=== PATIENT | male | born 1950 | race Caucasian/White ===

== ENCOUNTER 2019-06-18 20:37 | Emergency (ER) | payer MEDICARE, BC ==
--- NOTE | 2019-06-18 20:53 | EDM.PDOC ---
ED HPI GENERAL MEDICAL PROBLEM - General Chief Complaint: Respiratory Problem Stated Complaint: shortness of breath Time Seen by Provider: 06/18/19 20:45 Source of Information: Reports: Patient, EMS, Family (), Old Records ([facility] chart/EMR). Denies: EMS Notes Reviewed (Report not available at time of dictation) History Limitations: Reports: No Limitations - History of Present Illness INITIAL COMMENTS - FREE TEXT/NARRATIVE: Patient was brought to the emergency room via ambulance with route deliverer accompaniment for evaluation of sudden onset moderate dyspnea, diaphoresis, nonspecific generalized weakness, and dizziness with symptoms starting at about 20:15 hours this evening at home while he was taking out the dogs. He was standing in his own garage at that time with no exposure to exhaust, fumes, etc.. Per history from the paramedics his O2 sat was only 84% at that time with O2 at 15 L/m by nonrebreather mask started at that time. EKG was taken and IV started, however no other medications or treatment prior to arrival. Note recent outpatient right rotator cuff repair as below with additional distant history of a superficial thrombosis The patient denies any chest pain/pressure, heart flutter, orthostasis, orthopnea, paresthesias, recent decreased exercise tolerance, or any other anginal-type symptoms. No recent history of abdominal pain, nausea, diarrhea, melena, gross hematochezia, or any food intolerance, including fatty foods, etc., although some nonspecific heartburn type symptoms and burping sensation with the above symptoms with no improvement with Tums- extra strength. He denies any gross hematuria, colic, or other UTI symptoms. The patient also denies any recent fever, cough, wheezing, etc.. No history of recent headaches, visual changes, diplopia, change in mental status, or other change in neurological status. He denies any specific pain or discomfort other than normal postoperative pain in his right shoulder. Onset: Today, Sudden Onset Date: 06/18/19 Onset Time: 20:15 Duration: Improving Location: Reports: Other (No pain other than heartburn discomfort) Quality: Reports: Burning, Same as Previous Episode Severity: Mild Improves with: Reports: None Worsens with: Reports: None Context: Reports: Other (As above). Denies: Sick Contact, Trauma Associated Symptoms: Reports: Diaphoresis, Shortness of Breath, Weakness. Denies: Confusion, Chest Pain, Cough, cough w sputum, Fever/Chills, Headaches, Loss of Appetite, Malaise, Nausea/Vomiting, Rash, Seizure, Syncope Treatments EMS EDUCATOR: Reports: EKG, IV/IO, Oxygen, Other (see below) (As above) - Related Data Allergies Allergy/AdvReac Type Severity Reaction Status Date / Time No Known Allergies Allergy Verified 06/18/19 20:39 Home Meds: Home Meds Ascorbate Calcium [Vitamin C] 1 tab PO DAILY 06/18/19 [History] Aspirin [Aspirin EC] 325 mg PO DAILY 06/18/19 [History] Calcium Carbonate/Vitamin D3 [Calcium 500 mg-Vit D3 600 Unit] 1 tab PO DAILY [History] Celecoxib [CeleBREX] 200 mg PO DAILY 06/18/19 [History] Cyanocobalamin (Vitamin B-12) [B-12] 1,000 mcg PO DAILY 06/18/19 [History] Hydrocodone/Acetaminophen [Hydrocodon-Acetaminophen 5-325] 1 - 2 tab PO Q4HR PRN 06/18/19 [History] Ibuprofen [Motrin] 600 mg PO Q6H PRN 06/18/19 [History] Magnesium 250 mg PO DAILY 06/18/19 [History] Multivitamin [Daily Multiple Vitamin] 1 tab PO DAILY 06/18/19 [History] Red Yeast Rice 1 tab PO DAILY 06/18/19 [History] traMADol [Ultram] 1 tab PO Q6HR PRN 06/18/19 [History] Past Medical History HEENT History: Reports: Hard of Hearing, Impaired Vision, Otitis Media, Other ( See Below). Denies: Allergic Rhinitis, Cataract, Glaucoma, Macular Degeneration , Retinal Detachment Other HEENT History: Bilateral hearing loss secondary to previous recurrent otitis media. Patient wears glasses. Cardiovascular History: Reports: Blood Clots/VTE/DVT, Other (See Below). Denies : Afib, Aneurysm, Arrhythmia, CAD, Cardiomyopathy, Heart Failure, Heart Murmur, High Cholesterol, Hypertension, OH, PVD, Syncope Other Cardiovascular History: History of right leg superficial venous thrombosis on 06/29/06 with additional history of thrombophlebitis. Respiratory History: Reports: Bronchitis, Recurrent, COPD, Intubation, Previous. Denies: Asthma, Intubation, Difficult, PE, Pneumonia, Recurrent, Pneumothorax, Sleep Apnea, TB Gastrointestinal History: Reports: GERD, Jaundice, Other (See Below). Denies: Bowel Obstruction, Celiac Disease, Cholelithiasis, Chronic Constipation, Chronic Diarrhea, Colon Polyp, Fecal Incontinence, Gastritis, GI Bleed, Hepatitis, Hiatal Hernia, Inflammatory Bowel Disease, Irritable Bowel Syndrome, Pancreatitis, PUD Other Gastrointestinal History: jaundice. Genitourinary History: Reports: BPH. Denies: Acute Renal Failure, Chronic Renal Insuffiency, Renal Calculus, STD, Urinary Incontinence, UTI, Recurrent Musculoskeletal History: Reports: Arthritis, Back Pain, Chronic, Fracture, Gout , Neck Pain, Chronic, Osteoarthritis, Other (See Below). Denies: Amputation, RA , SLE Other Musculoskeletal History: Rotator cuff tear secondary to a fall with surgery as below. Previous basilar fracture of the left fifth distal phalanx/ finger on 08/04/05. Right index finger fracture at age 17. Neurological History: Reports: None. Denies: Cerebral Aneurysms, Concussion, CVA, Headaches, Chronic, Head Trauma, Migraines, MS, Neuropathy, Diabetic, Neuropathy, Peripheral, Parkinson's, Seizure, TIA, Vertigo Psychiatric History: Denies: Abuse, Victim of, ADD, ADHD, Addiction, Anxiety, Depression, Psych Hospitalization(s), PTSD, Suicide Attempt, Suicidal Ideation Endocrine/Metabolic History: Reports: Obesity/BMI 30+. Denies: Diabetes, Type I , Diabetes, Type II, Diabetes Mellitus, Type 3c, Hypothyroidism, IDDM Hematologic History: Reports: None. Denies: Anemia, Blood Transfusion(s), Iron Deficiency Oncologic (Cancer) History: Denies: Basal Cell Carcinoma, Colon, Hodgkin's Lymphoma, Leukemia, Lymphoma, Malignant Melanoma, Non-Hodgkin's Lymphoma, Prostate, Squamous Cell Carcinoma Dermatologic History: Reports: None. Denies: Eczema, Psoriasis - Infectious Disease History Infectious Disease History: Reports: Chicken Pox, Measles, Mumps. Denies: C- Difficile, Meningitis, Mononucleosis, MRSA, Pertussis (Whooping Cough), Rheumatic Fever, Rubella, Scarlet Fever, Shingles, TB, VRE - Past Surgical History Head Surgeries/Procedures: Reports: None HEENT Surgical History: Reports: Adenoidectomy, Myringotomy w Tube(s), Oral Surgery, Tonsillectomy, Other (See Below). Denies: Cataract Surgery, Eye Surgery, Laser Surgery, LASIK, Naso-Sinus Surgery Other HEENT Surgeries/Procedures: Multiple teeth extractions. Bilateral PE tubes at about age 6. Tonsillectomy and adenoidectomy at age 35. Cardiovascular Surgical History: Reports: None, Valve Replacement, Varicose Other Cardiovascular Surgeries/Procedures: Right leg varicose vein stripping and ligation on 08/09/06. Respiratory Surgical History: Reports: None. Denies: Thoracentesis GI Surgical History: Reports: Hernia, Abdominal, Other (See Below). Denies: Appendectomy, Cholecystectomy, Colonoscopy, EGD, Hernia, Inguinal, Hernia Repair /Other Other GI Surgeries/Procedures: Ventral hernia repair on 08/19/09. Male Surgical History: Reports: None. Denies: Circumcision, TURP- Transurethral Resection of Prostate, Vasectomy Endocrine Surgical History: Reports: None. Denies: Thyroid Biopsy Neurological Surgical History: Reports: None. Denies: C-Spine, Discectomy, Laminectomy, Lumbar Spine, Spinal Fusion, Thoracic Spine, Vertebroplasty Musculoskeletal Surgical History: Reports: Arthroscopic Knee, Shoulder Surgery, Other (See Below). Denies: Carpal Tunnel, Ganglion Cyst, Joint Replacement, ORIF Other Musculoskeletal Surgeries/Procedures:: Right arthroscopic rotator cuff repair on 06/09/19. Knee arthroscopic surgery in about 2016. Oncologic Surgical History: Reports: None Dermatological Surgical History: Reports: None - Past Imaging History Past Imaging History: Reports: TIFFANIE Screen (Negative on 03/26/18.), MRI (Right shoulder MRI on 05/26/19. MRI of the cervical spine on 03/30/08), PFT (Positive on 08/13/09), Stress Testing (Negative cardiac PET scan on 08/17/09.), Venous Doppler (Venous Doppler studies of the right leg negative on 02/24/09 however positive on 06/29/06 for right superficial femoral vein thrombosis.) Social & Family History - Family History HEENT: Reports: None. Denies: Glaucoma, Macular Degeneration, Retinal Detachment Cardiac: Reports: Bypass, CAD, OH, Other (See Below). Denies: Afib, Aneurysm, Arrhythmia, Blood Clots/VTE/DVT, Heart Failure, Heart Murmur, High Cholesterol, Hypertension, PVD/COD, Syncope Other Cardiac Family History: Mother with fatal OH at age 68. Father with CABG 3 in his 60s. Respiratory: Reports: None. Denies: Asthma, COPD, PE, Pneumothorax, Sleep Apnea GI: Reports: None. Denies: Celiac Disease, Cholelithiasis, Colon Polyps, GI bleed, Inflammatory Bowel Disease, Irritable Bowel Syndrome, PUD : Reports: Renal Calculus, Other (See Below). Denies: Dialysis, Renal Disease /Insufficiency Other Family History: Son with urolithiasis. OBGYN: Reports: Recurrent Spontaneous , Other (See Below). Denies: Endometriosis Other OBGYN Family History: Mother with recurrent SAB of unknown etiology. Musculoskeletal: Reports: Arthritis, Osteoarthritis, Other (See Below). Denies : Gout, RA, SLE Other Musculoskeletal Family History: Mother with osteoarthritis. Neurological: Reports: Migraines, Other (See Below). Denies: Alzheimers Disease , Cerebral Aneurysms, CVA, Dementia, MS, Parkinson's, Seizure, TIA Other Neurological Family History: Mother with migraine headaches. Psychiatric: Reports: None. Denies: Abuse, Victim of, ADD, ADHD, Anxiety, Depression, Psych Hospitalization(s), PTSD, Suicide Attempt Endocrine/Metabolic: Reports: Diabetes, type II, IDDM, Other (See Below). Denies: Diabetes, Type I, Diabetes Mellitus, Type 3c, Hypothyroidism Other Endocrine/Metabolic Family History: Father with IDDM. Paternal grandmother with AODM. Hematologic: Reports: None. Denies: Anemia, SLE Immunologic: Reports: None. Denies: AIDS, HIV, SLE Dermatologic: Reports: None. Denies: Eczema, Psoriasis Oncologic: Reports: Metastatic, Other (See Below). Denies: Colon, Hodgkin's Lymphoma, Leukemia, Lung, Lymphoma, Non-Hodgkin's Lymphoma, Prostate, Skin Other Oncologic Family History: Father with metastatic stomach cancer fatal at age 74. Mother with throat cancer in her 40s. - Tobacco Use Smoking Status *Q: Former Smoker Tobacco Use Within Last Twelve Months: Cigarettes Years of Tobacco use: 44 Packs/Tins Daily: 2 Packs/Tins Daily Comment: Patient smoked between ages 16 and 60 with average use of one to 3 packs per day. Used Tobacco, but Quit: Yes Smoking Cessation Information Provided To Patient: No Second Hand Smoke Exposure: Yes Source of Second Hand Smoke Exposure: smokes Second Hand Smoke Education Provided: Yes - Caffeine Use Caffeine Use: Reports: Coffee (3 cups per day). Denies: Energy Drinks, Soda, Tea - Alcohol Use Alcohol Use History: Yes Days Per Week of Alcohol Use: 1 Number of Drinks Per Day: 5 Number of Drinks Per Day Comment: Usually Mixed drinks every 13 weeks. No previous DWIs, problems with alcohol abuse, etc. Total Drinks Per Week: 5 Alcohol Use in Last Twelve Months: Yes - Recreational Drug Use Recreational Drug Type: Reports: Marijuana/Hashish (Initially in his 20s with monthly use at this time). 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 ED EXAM, GENERAL - Physical Exam Exam: See Below Exam Limited By: No Limitations General Appearance: Alert, WD/WN, No Apparent Distress Eye Exam: Bilateral Eye: EOMI, Normal Inspection (No nystagmus. Patient wearing glasses.), PERRL Ears: Normal External Exam, Normal Canal, Normal TMs, Hearing Loss (Mild bilateralstable by history) Nose: Normal Inspection, Normal Mucosa, No Blood Throat/Mouth: Normal Inspection, Normal Lips, Normal Teeth (Multiple missing teeth), Normal Gums, Normal Oropharynx, Normal Voice, No Airway Compromise. No : Dysphagia, Perioral Cyanosis Head: Atraumatic, Normocephalic. No: Facial Swelling, Facial Tenderness, Sinus Tenderness Neck: Normal Inspection, Supple, Non-Tender, Full Range of Motion. No: Carotid Bruit, Lymphadenopathy (L), Lymphadenopathy (R), Thyromegaly Respiratory/Chest: No Respiratory Distress, No Accessory Muscle Use, Chest Non- Tender, Rales (Mild bilateral basilar rales). No: Pleural Rub, Retractions Cardiovascular: Normal Peripheral Pulses, No Edema, No Gallop, No JVD, No Murmur , No Rub, Tachycardia (Regular rhythm). No: Gallop/S3, Gallop/S4, Friction Rub Peripheral Pulses: 2+: Radial (L), Radial (R), Dorsalis Pedis (L), Dorsalis Pedis (R) GI/Abdominal: Normal Bowel Sounds, Soft, Non-Tender, No Organomegaly, No Distention, No Abnormal Bruit, No Mass, Pelvis Stable, Other (Obese). No: Guarding (Male) Exam: Deferred Rectal (Males) Exam: Deferred Back Exam: Normal Inspection, Full Range of Motion. No: CVA Tenderness (L), CVA Tenderness (R) Extremities: Non-Tender, No Pedal Edema, Normal Capillary Refill, Limited Range of Motion (Right shoulder immobilizer/bradycardia secondary to recent outpatient surgery). No: Chaitanya's Sign Neurological: Alert, Oriented, CN II-XII Intact, Normal Cognition, Normal Gait, Normal Reflexes (Negative Babinski's), No Motor/Sensory Deficits Psychiatric: Normal Affect, Normal Mood Skin Exam: Warm, Dry, Intact, Normal Color, No Rash, Tattoo(s), Wound/Incision ( Surgical site right shoulder region). No: Diaphoretic Lymphatic: No Adenopathy EKG INTERPRETATION EKG Date: 06/18/19 Time: 21:11 Rhythm: Other (Sinus tachycardia) Rate (Beats/Min): 110 [place]: LAD-Left [place] Deviation (Extended left cardiac axis) P-Wave: Enlarged (Mild to moderate diffuse biphasic P waves) QRS: Wide (Oral 0.10 seconds representing repolarization changes versus possible beginning incomplete right bundle branch block.) ST-T: Normal QT: Normal CA/PQ Interval: 0.18 seconds Comparison: NA - No Prior EKG (No recent official EKG for comparison with no significant change from EKG taken by the paramedics prior to patient transfer.) EKG Interpretation Comments: 1. No acute ischemic changes 2. Left atrial enlargement 3. Repolarization changes 4. Sinus tachycardia Course - Vital Signs Last Recorded V/S: Last Vital Signs Temp 36.8 C 06/18/19 23:13 Pulse 111 H 06/18/19 23:13 Resp 20 06/18/19 23:13 BP 158/88 H 06/18/19 23:13 Pulse Ox 98 06/18/19 23:13 Vital Signs - 24 hr 06/18/19 06/18/19 06/18/19 20:40 21:00 21:04 Temperature [ 36.4 C Oral] Pulse, 120 H Peripheral Pulse, 118 H 118 H Peripheral [ Pulse Oximetry] Respiratory 20 22 H Rate Blood Pressure 143/88 H Blood Pressure 152/102 H 143/88 H [Left Upper Arm ] O2 Sat by Pulse 95 94 L Oximetry 06/18/19 06/18/19 06/18/19 21:30 21:43 22:20 Temperature [ 36.7 C Oral] Pulse, Peripheral Pulse, 110 H 112 H 117 H Peripheral [ Pulse Oximetry] Respiratory 21 H 21 H 22 H Rate Blood Pressure Blood Pressure 133/93 H 152/99 H 138/102 H [Left Upper Arm ] O2 Sat by Pulse 95 95 98 Oximetry 06/18/19 06/18/19 22:50 23:13 Temperature [ 36.8 C Oral] Pulse, Peripheral Pulse, 112 H 111 H Peripheral [ Pulse Oximetry] Respiratory 20 20 Rate Blood Pressure Blood Pressure 140/99 H 158/88 H [Left Upper Arm ] O2 Sat by Pulse 98 98 Oximetry - Orders/Labs/Meds Orders: Active Orders 24 hr Category Date Time Status Cardiac Monitoring [RC] . DIRECTED Care 06/18/19 20:54 Active EKG Documentation Completion [RC] ASDIRECTED Care 06/18/19 20:54 Active Oxygen Therapy, ED [RC] CONTINUOUS Care 06/18/19 20:54 Active Peripheral IV Care [RC] . DIRECTED Care 06/18/19 20:54 Active Pulse Oximetry [RC] CONTINUOUS Care 06/18/19 20:54 Active Up With Assistance [RC] PFP Care 06/18/19 20:54 Active Vital Signs [RC] PFP Care 06/18/19 20:54 Active Nothing per Oral Now Diet [DIET] Diet 06/18/19 Breakfast Active Chest 1V Frontal [CR] Stat Exams 06/18/19 20:54 Taken Chest PE [Ang Chest] [CT] Stat Exams 06/18/19 21:34 Taken Sodium Chloride 0.9% [Saline Flush] Med 06/18/19 20:54 Active 10 ml FLUSH ASDIRECTED PRN Obtain Past Medical Record [OM.PC] Urgent Oth 06/18/19 20:54 Active Peripheral IV Insertion Adult [OM.PC] Stat Oth 06/18/19 20:54 Ordered Resuscitation Status Stat Resus Stat 06/18/19 20:54 Ordered Medication Orders Sodium Chloride (Saline Flush) 10 ml FLUSH ASDIRECTED PRN PRN Reason: Keep Vein Open Last Admin: 06/18/19 21:10 Dose: 10 ml Admin: 06/18/19 21:04 Dose: 10 ml Labs: Laboratory Tests 06/18/19 06/18/19 06/18/19 Range/Units 21:02 21:02 21:02 WBC 9.4 (4.0-10.2) K/uL RBC 4.89 (4.33-5.41) M/uL Hgb 14.8 (13.1-16.8) g/dL Hct 45.2 (39.0-49.0) % MCV 92.4 (84.0-98.0) fL MCH 30.3 (28.2-33.3) pg MCHC 32.7 (31.7-36.0) g/dL RDW 14.1 (11.2-14.1) % Plt Count 176 (150-350) K/uL Neut % (Auto) 69.4 (45.0-80.0) % Lymph % (Auto) 16.9 (10.0-50.0) % [place] % (Auto) 11.2 (2.0-14.0) % Eos % (Auto) 2.1 (0.0-5.0) % Baso % (Auto) 0.4 (0.0-2.0) % Neut # (Auto) 6.51 (1.40-7.00) K/uL Lymph # (Auto) 1.59 (0.50-3.50) K/uL [place] # (Auto) 1.05 H (0.00-1.00) K/uL Eos # (Auto) 0.20 (0.00-0.50) K/uL Baso # (Auto) 0.04 (0.00-0.20) K/uL PT 9.9 (9.5-12.0) SEC INR 0.9 APTT 23.6 (21.0-31.3) SEC D-Dimer, Quantitative 3270 H (0-400) ng/mL Sodium (136-145) mmol/L Potassium (3.5-5.1) mmol/L Chloride (98-107) mmol/L Carbon Dioxide (21.0-32.0) mmol/L BUN (7-18) mg/dL Creatinine (0.51-1.17) mg/dL Est Cr Clr Drug Dosing Estimated GFR (MDRD) mL/min Glucose (74-106) mg/dL Lactic Acid (0.4-2.0) mmol/L Uric Acid (2.6-7.2) mg/dL Calcium (8.5-10.1) mg/dL Magnesium (1.8-2.4) mg/dL Total Bilirubin (0.2-1.0) mg/dL AST (15-37) U/L ALT (12-78) U/L Alkaline Phosphatase (46-116) IU/L Creatine Kinase (26-308) U/L Creatine Kinase Index (0.0-2.5) % CK-MB (CK-2) (0.00-3.60) ng/mL Troponin I (0.000-0.056) ng/mL NT-Pro-B Natriuret Pep (0-125) pg/mL Total Protein (6.4-8.2) g/dL Albumin (3.4-5.0) g/dL TSH, Ultra Sensitive (0.358-3.740) mIU/mL 06/18/19 06/18/19 Range/Units 21:02 21:02 WBC (4.0-10.2) K/uL RBC (4.33-5.41) M/uL Hgb (13.1-16.8) g/dL Hct (39.0-49.0) % MCV (84.0-98.0) fL MCH (28.2-33.3) pg MCHC (31.7-36.0) g/dL RDW (11.2-14.1) % Plt Count (150-350) K/uL Neut % (Auto) (45.0-80.0) % Lymph % (Auto) (10.0-50.0) % [place] % (Auto) (2.0-14.0) % Eos % (Auto) (0.0-5.0) % Baso % (Auto) (0.0-2.0) % Neut # (Auto) (1.40-7.00) K/uL Lymph # (Auto) (0.50-3.50) K/uL [place] # (Auto) (0.00-1.00) K/uL Eos # (Auto) (0.00-0.50) K/uL Baso # (Auto) (0.00-0.20) K/uL PT (9.5-12.0) SEC INR APTT (21.0-31.3) SEC D-Dimer, Quantitative (0-400) ng/mL Sodium 141 (136-145) mmol/L Potassium 4.4 (3.5-5.1) mmol/L Chloride 102 (98-107) mmol/L Carbon Dioxide 26.4 (21.0-32.0) mmol/L BUN 24 H (7-18) mg/dL Creatinine 0.98 (0.51-1.17) mg/dL Est Cr Clr Drug Dosing TNP Estimated GFR (MDRD) > 60 mL/min Glucose 222 H (74-106) mg/dL Lactic Acid 2.1 H (0.4-2.0) mmol/L Uric Acid 8.4 H (2.6-7.2) mg/dL Calcium 9.1 (8.5-10.1) mg/dL Magnesium 2.2 (1.8-2.4) mg/dL Total Bilirubin 0.5 (0.2-1.0) mg/dL AST 43 H (15-37) U/L ALT 71 (12-78) U/L Alkaline Phosphatase 83 (46-116) IU/L Creatine Kinase 72 (26-308) U/L Creatine Kinase Index 1.8 (0.0-2.5) % CK-MB (CK-2) 1.30 (0.00-3.60) ng/mL Troponin I 0.209 H* (0.000-0.056) ng/mL NT-Pro-B Natriuret Pep 16 (0-125) pg/mL Total Protein 7.2 (6.4-8.2) g/dL Albumin 3.7 (3.4-5.0) g/dL TSH, Ultra Sensitive 3.723 (0.358-3.740) mIU/mL Meds: Medications Generic Name Dose Route Start Last Admin Trade Name Freq PRN Reason Stop Dose Admin Sodium Chloride 10 ml 06/18/19 20:54 06/18/19 21:10 Saline Flush FLUSH 10 ml ASDIRECTED PRN Administration Keep Vein Open Discontinued Medications Generic Name Dose Route Start Last Admin Trade Name Gustavo PRN Reason Stop Dose Admin Aspirin 324 mg 06/18/19 20:54 06/18/19 21:01 Aspirin CHEW 06/18/19 20:55 324 mg ONETIME ONE Administration Enoxaparin Sodium 120 mg 06/18/19 22:26 06/18/19 22:29 Lovenox SUBCUT 06/18/19 22:27 120 mg ONETIME ONE Administration Famotidine 40 mg 06/18/19 20:54 06/18/19 21:03 Pepcid IVPUSH 06/18/19 20:55 40 mg ONETIME ONE Administration Iopamidol 100 ml 06/18/19 21:40 06/18/19 22:16 Isovue-370 (76%) IVPUSH 06/18/19 21:41 100 ml ONETIME ONE Administration Metoprolol Tartrate 2.5 mg 06/18/19 20:54 06/18/19 21:04 Lopressor IVPUSH 06/18/19 20:55 2.5 mg ONETIME ONE Administration Ticagrelor 180 mg 06/18/19 20:54 06/18/19 21:01 Brilinta PO 06/18/19 20:55 180 mg ONETIME ONE Administration - Radiology Interpretation Free Text/Narrative:: night monitor shows sinus tachycardia with heart rate in the 110s to 120s with improvement to the 100s to 110s after medical therapy. No extrasystoles or arrhythmia. Chest X-ray, portable, shows borderline cardiomegaly and pulmonary obstructive disease with questionable pulmonary hypertension. Right middle lobe atelectasis versus pulmonary infiltrate with 1 cm perihilar nodular density of unknown character. Official x-ray report confirms above nodular density with follow-up recommended. No pneumothorax with possible left basilar atelectasis versus pneumonitis by official report. Telephone consultation at 22:48 hours with the radiology department at [facility]. Preliminary verbal report of CTA of the chest with PE protocol positive for large bilateral saddle PEs with right heart strain. The above left-sided pulmonary nodule was not mentioned either in the preliminary verbal report or final written report. CT Results Date: 06/18/19 CT Results Time: 22:48 Departure - Departure Time of Disposition: 23:23 Disposition: DC/Tfer to Acute Hospital 02 Condition: Good Clinical Impression: D-dimer, elevated, COPD (chronic obstructive pulmonary disease), Peptic reflux disease, Osteoarthritis, Dyspnea, Tobacco abuse counseling, Hyperglycemia, Pulmonary embolism, Pulmonary nodule, Elevated blood pressure reading, LFT elevation - Discharge Information *PRESCRIPTION DRUG MONITORING PROGRAM REVIEWED*: Not Applicable *COPY OF PRESCRIPTION DRUG MONITORING REPORT IN PATIENT AYLA: Not Applicable Referrals: Manuel Sarah PA [Primary Care Provider] - Forms: ED Department Discharge, Interfacility Transfer EMTALA - Problem List & Annotations (1) Pulmonary embolism SNOMED Code(s): 11282471 Code(s): I26.99 - OTHER PULMONARY EMBOLISM WITHOUT ACUTE COR PULMONALE Status: Acute Priority: High Current Visit: Yes Onset Date: 06/18/19 Annotation/Comment:: As below. Qualifiers: Pulmonary embolism type: saddle Chronicity: acute Acute cor pulmonale presence: with acute cor pulmonale Qualified Code(s): I26.02 - Saddle embolus of pulmonary artery with acute cor pulmonale (2) D-dimer, elevated SNOMED Code(s): 605475129 Code(s): R79.89 - OTHER SPECIFIED ABNORMAL FINDINGS OF BLOOD CHEMISTRY Status: Acute Priority: High Current Visit: Yes Onset Date: 06/18/19 Annotation/Comment:: Significant d-dimer elevation with positive CTA of the chest results as above. After my preliminary initial evaluation of the CTA scan and troponin I elevation I did go ahead and order subcutaneous Lovenox at the VTE dose prior to receiving the verbal preliminary report as above. Telephone consultation at 22:[address] Frye, emergency room physician at [facility] in [place], who does accept the patient for further treatment and evaluation, with no further treatment recommendations given. The patient's 02 was decreased by the emergency room nurse to 3 L/m by nasal cannula initially upon arrival to our facility with subsequent successful titration to 2 L/m by nasal cannula prior to transfer with excellent O2 saturations during his emergency room care. (3) Dyspnea SNOMED Code(s): 940154141 Code(s): R06.00 - DYSPNEA, UNSPECIFIED Status: Acute Priority: High Current Visit: Yes Onset Date: 06/18/19 Annotation/Comment:: Secondary to atypical chest pain/GERD symptoms as below and clinical presentation chest pain protocol was initiated upon patient's arrival to the emergency room. Secondary to elevated blood pressures and tachycardia low-dose IV Lopressor was also given on arrival. Note mild troponin I elevation likely secondary to right heart strain from pulmonary embolism as above with otherwise normal EKG and cardiac enzymes. Consider serial cardiac enzymes and EKG. Cardiology consultation depending on his clinical course. Qualifiers: Dyspnea type: acute respiratory distress Qualified Code(s): R06.03 - Acute respiratory distress (4) Pulmonary nodule SNOMED Code(s): 370256663 Code(s): R91.1 - SOLITARY PULMONARY NODULE Status: Acute Priority: High Current Visit: Yes Onset Date: 06/18/19 Annotation/Comment:: Note suspicious left perihilar nodule by portable chest x-ray, however not mentioned in the CT of the chest results as above. Findings likely secondary to his PE, however continue close follow-up by accepting physicians and regular providers. (5) COPD (chronic obstructive pulmonary disease) SNOMED Code(s): 90819816 Code(s): J44.9 - CHRONIC OBSTRUCTIVE PULMONARY DISEASE, UNSPECIFIED Status : Chronic Priority: Medium Current Visit: Yes Annotation/Comment:: Borderline COPD by chest x-ray with no current medical therapy. Note previous history of significant tobacco use with the patient congratulated about smoking cessation. No recent fever or bronchitic type symptoms, despite hypoxia as above. Qualifiers: COPD type: emphysema Emphysema type: panlobular Qualified Code(s): J43.1 - Panlobular emphysema (6) Osteoarthritis SNOMED Code(s): 753186543 Code(s): M19.90 - UNSPECIFIED OSTEOARTHRITIS, UNSPECIFIED SITE Status: Chronic Priority: Medium Current Visit: Yes Annotation/Comment:: Stable by history with no recent gout attacks. Qualifiers: Osteoarthritis location: multiple joints Osteoarthritis type: primary Qualified Code(s): M15.0 - Primary generalized (osteo)arthritis (7) Peptic reflux disease SNOMED Code(s): 023165225 Code(s): K21.9 - GASTRO-ESOPHAGEAL REFLUX DISEASE WITHOUT ESOPHAGITIS Status: Chronic Priority: Medium Current Visit: Yes Annotation/Comment:: Note heartburn and/or atypical chest pain-type symptoms as above. High-dose IV Pepcid initiated in the emergency room. (8) Tobacco abuse counseling SNOMED Code(s): 282513618, 969678226, 547874100 Code(s): Z71.6 - TOBACCO ABUSE COUNSELING Status: Chronic Priority: Medium Current Visit: Yes Annotation/Comment:: Patient was congratulated about his tobacco cessation as above. His already has tobacco cessation information at home with tobacco cessation strongly encouraged. (9) Hyperglycemia SNOMED Code(s): 34222627 Code(s): R73.9 - HYPERGLYCEMIA, UNSPECIFIED Status: Acute Priority: High Current Visit: Yes Onset Date: 06/18/19 Annotation/Comment:: Moderately elevated nonfasting random glucose level with additional obesity. Glycosylated hemoglobin and fasting lipid panel recommended. (10) Elevated blood pressure reading SNOMED Code(s): 96452910 Code(s): R03.0 - ELEVATED BLOOD-PRESSURE READING, W/O DIAGNOSIS OF HTN Status: Acute Priority: High Current Visit: Yes Onset Date: 06/18/19 Annotation/Comment:: As above. No previous history of hypertension. Continue to observe closely by accepting providers. Vital signs were stable at time of transfer. (11) LFT elevation SNOMED Code(s): 431575773, 790245605 Code(s): R94.5 - ABNORMAL RESULTS OF LIVER FUNCTION STUDIES Status: Acute Priority: Medium Current Visit: Yes Onset Date: 06/18/19 Annotation/ Comment:: LFTs elevation likely secondary to right heart strain from his PE as above. Consider fatty liver. - Problem List Review Problem List Initiated/Reviewed/Updated: Yes - My Orders Last 24 Hours: My Active Orders 06/18/19 20:54 Cardiac Monitoring [RC] . DIRECTED EKG Documentation Completion [RC] ASDIRECTED Oxygen Therapy, ED [RC] CONTINUOUS Peripheral IV Care [RC] . DIRECTED Pulse Oximetry [RC] CONTINUOUS Up With Assistance [RC] PFP Vital Signs [RC] PFP Chest 1V Frontal [CR] Stat Sodium Chloride 0.9% [Saline Flush] 10 ml FLUSH ASDIRECTED PRN Obtain Past Medical Record [OM.PC] Urgent Peripheral IV Insertion Adult [OM.PC] Stat Resuscitation Status Stat 06/18/19 21:34 Chest PE [Ang Chest] [CT] Stat 06/18/19 Breakfast Nothing per Oral Now Diet [DIET] - Assessment/Plan Last 24 Hours: My Active Orders 06/18/19 20:54 Cardiac Monitoring [RC] . DIRECTED EKG Documentation Completion [RC] ASDIRECTED Oxygen Therapy, ED [RC] CONTINUOUS Peripheral IV Care [RC] . DIRECTED Pulse Oximetry [RC] CONTINUOUS Up With Assistance [RC] PFP Vital Signs [RC] PFP Chest 1V Frontal [CR] Stat Sodium Chloride 0.9% [Saline Flush] 10 ml FLUSH ASDIRECTED PRN Obtain Past Medical Record [OM.PC] Urgent Peripheral IV Insertion Adult [OM.PC] Stat Resuscitation Status Stat 06/18/19 21:34 Chest PE [Ang Chest] [CT] Stat 06/18/19 Breakfast Nothing per Oral Now Diet [DIET] Assessment:: As above Plan: As above. Extensive precautions were given to the patient and his , who are in agreement with the treatment plan. Ambulance transfer with route deliverer accompaniment as above.
[2019-06-18] MEDS ORDERED: Ticagrelor 90 MG Tab PO ONE (20:54)
[2019-06-18] MEDS ORDERED: Famotidine 20 MG/2 ML SDV IVPUSH ONE (20:54)
[2019-06-18] MEDS ORDERED: Aspirin 81 MG Tab.Chew CHEW ONE (20:54)
[2019-06-18] MEDS ORDERED: Metoprolol Tartrate 5 MG/5 ML SDV IVPUSH ONE (20:54)
[2019-06-18] MEDS: Sodium Chloride 0.9% 10 ML Syringe FLUSH PRN ×2 (21:04→21:10)
[2019-06-18 21:29] LABS: CHLORIDE,CL 102 mmol/L (98-107); SODIUM,NA 141 mmol/L (136-145)
[2019-06-18] MEDS ORDERED: Iopamidol 755 Mg/ML 100 ML Bottle IVPUSH ONE (21:40)
[2019-06-18] MEDS ORDERED: Enoxaparin 100 MG/1 ML Syringe SUBCUT ONE (22:26)
== END 2019-06-18 23:23 ==
LOC: LL.ED 20:37
DX: J44.9 Chronic obstructive pulmonary disease, unspecified (principal); R79.1 Abnormal coagulation profile; K21.9 Gastro-esophageal reflux disease without esophagitis; R73.9 Hyperglycemia, unspecified; I26.99 Other pulmonary embolism without acute cor pulmonale; R91.1 Solitary pulmonary nodule; R03.0 Elevated blood-pressure reading, without diagnosis of hypertension; R94.5 Abnormal results of liver function studies; H91.93 Unspecified hearing loss, bilateral; M19.90 Unspecified osteoarthritis, unspecified site; E66.9 Obesity, unspecified; Z68.36 Body mass index [BMI] 36.0-36.9, adult; Z79.82 Long term (current) use of aspirin; Z79.899 Other long term (current) drug therapy; Z87.891 Personal history of nicotine dependence; Z71.6 Tobacco abuse counseling
CPT/HCPCS: 36415; 71045; 71275; 80053; 82550; 82553; 83605; 83735; 83880; 84443; 84484; 84550; 85025; 85379; 85610; 85730; 93005; 96372; 96374; 96375; 99285-25; A9270-GY; J1650; J3490; Q9967

== ENCOUNTER 2023-05-14 19:21 | Inpatient (IN) | payer MEDICARE ==
[2023-05-14] MEDS ORDERED: Sodium Chloride 0.9% 10 ML Syringe FLUSH PRN (19:23)
[2023-05-14] MEDS ORDERED: Lactated Ringers 1,000 ML IV SCH ×2 (19:30→21:00)
[2023-05-14 19:37] LABS: APPEARANCE,URINE CLEAR; BILIRUBIN,URINE NEGATIVE (NEGATIVE); COLOR,URINE YELLOW; GLUCOSE,URINE 500 mg/dL (NEGATIVE); KETONES,URINE TRACE mg/dL (NEGATIVE); LEUKOCYTE ESTERASE,URINE NEGATIVE (NEGATIVE); NITRITE,URINE NEGATIVE (NEGATIVE); OCCULT BLOOD,URINE NEGATIVE (NEGATIVE); PROTEIN,URINE NEGATIVE (NEGATIVE); UROBILINOGEN,URINE 0.2 E.U./dL (0.2-1.0)
[2023-05-14 19:51] LABS: BASOPHILS ABSOLUTE AUTO 0.05 K/uL (0.00-0.20); BASOPHILS PERCENT AUTO 0.3 % (0.0-2.0); EOSINOPHILS ABSOLUTE AUTO 0.22 K/uL (0.00-0.50); EOSINOPHILS PERCENT AUTO 1.3 % (0.0-5.0); HEMATOCRIT 40.2 % (39.0-49.0); HEMOGLOBIN 13.8 g/dL (13.1-16.8); LYMPHOCYTES ABSOLUTE AUTO 1.73 K/uL (0.50-3.50); LYMPHOCYTES PERCENT AUTO 10.1 % (10.0-50.0); MEAN CORPUSCULAR HEMOGLOBIN 29.9 pg (28.2-33.3); MEAN CORPUSCULAR HGB CONC 34.3 g/dL (31.7-36.0); MONOCYTES ABSOLUTE AUTO 1.67 K/uL (0.00-1.00); MONOCYTES PERCENT AUTO 9.8 % (2.0-14.0); NEUTROPHILS ABSOLUTE AUTO 13.42 K/uL (1.40-7.00); NEUTROPHILS PERCENT AUTO 78.5 % (45.0-80.0); PLATELET COUNT,PLT 231 K/uL (150-350); RED BLOOD CELL COUNT 4.62 M/uL (4.33-5.41); RED CELL DISTRIBUTION WIDTH 12.6 % (11.2-14.1); WHITE BLOOD CELL COUNT,WBC 17.1 K/uL (4.0-10.2)
[2023-05-14 20:15] LABS: ALANINE AMINOTRANSFERASE,ALT 28 U/L (12-78); ALBUMIN 3.9 g/dL (3.4-5.0); ALKALINE PHOSPHATASE 92 IU/L (46-116); ASPARTATE AMNIOTRANSFERASE,AST 16 U/L (15-37); BILIRUBIN TOTAL 0.9 mg/dL (0.2-1.0); BLOOD UREA NITROGEN,BUN 44 mg/dL (7-18); CALCIUM 9.4 mg/dL (8.5-10.1); CARBON DIOXIDE,CO2 24.2 mmol/L (21.0-32.0); CHLORIDE,CL 87 mmol/L (98-107); ESTIMATED GFR 28 mL/min (>=60); POTASSIUM,K 4.2 mmol/L (3.5-5.1); PROTEIN TOTAL,TP 7.4 g/dL (6.4-8.2); SODIUM,NA 125 mmol/L (136-145)
[2023-05-14 20:31] LABS: GLUCOSE RANDOM 688 mg/dL (70-99)
[2023-05-14 20:34] LABS: HEMOGLOBIN A1C > 14.0 % (4.3-5.7)
[2023-05-14] MEDS ORDERED: Ondansetron 4 MG/2 ML SDV IVPUSH SCH (21:00)
[2023-05-14] MEDS ORDERED: Acetaminophen 325 MG Tab PO PRN (21:33)
[2023-05-14] MEDS ORDERED: Insulin Lispro 100 Units/ML 3 ML Vial SUBCUT SCH (21:45)
[2023-05-14] MEDS ORDERED: 50% Dextrose in Water 50 ML Syringe IVPUSH PRN (21:54)
[2023-05-14] MEDS ORDERED: Glucagon,Human Recombinant 1 MG Vial IM PRN (21:54)
[2023-05-14] MEDS ORDERED: Insulin Lispro 100 Units/ML 3 ML Vial SUBCUT STA (21:54)
[2023-05-14] MEDS ORDERED: Ondansetron 4 MG/2 ML SDV IVPUSH PRN (21:57)
[2023-05-14] MEDS: Sodium Chloride 0.9% 1,000 ML IV SCH (22:20)
[2023-05-15] MEDS: Sodium Chloride 0.9% 1,000 ML IV SCH (05:41)
[2023-05-15] MEDS ORDERED: Insulin Lispro 100 Units/ML 3 ML Vial SUBCUT ONE (05:49)
[2023-05-15 06:54] LABS: CORONAVIRUS COVID-19 NAA NEGATIVE (NEGATIVE); INFLUENZA A NAA NEGATIVE (NEGATIVE); INFLUENZA B NAA NEGATIVE (NEGATIVE); RESPIRATORY SYNCYTIAL VIR NAA NEGATIVE (NEGATIVE)
[2023-05-15] MEDS ORDERED: metFORMIN 500 MG Tab PO ONE (06:56)
[2023-05-15 07:50] LABS: BASOPHILS ABSOLUTE AUTO 0.07 K/uL (0.00-0.20); BASOPHILS PERCENT AUTO 0.4 % (0.0-2.0); EOSINOPHILS ABSOLUTE AUTO 0.27 K/uL (0.00-0.50); EOSINOPHILS PERCENT AUTO 1.6 % (0.0-5.0); LYMPHOCYTES ABSOLUTE AUTO 1.58 K/uL (0.50-3.50); LYMPHOCYTES PERCENT AUTO 9.6 % (10.0-50.0); MEAN CORPUSCULAR HEMOGLOBIN 29.5 pg (28.2-33.3); MEAN CORPUSCULAR HGB CONC 34.1 g/dL (31.7-36.0); MEAN CORPUSCULAR VOLUME 86.3 fL (84.0-98.0); MONOCYTES ABSOLUTE AUTO 1.24 K/uL (0.00-1.00); MONOCYTES PERCENT AUTO 7.5 % (2.0-14.0); NEUTROPHILS ABSOLUTE AUTO 13.27 K/uL (1.40-7.00); NEUTROPHILS PERCENT AUTO 80.9 % (45.0-80.0); PLATELET COUNT,PLT 220 K/uL (150-350); RED BLOOD CELL COUNT 4.75 M/uL (4.33-5.41); RED CELL DISTRIBUTION WIDTH 12.5 % (11.2-14.1); WHITE BLOOD CELL COUNT,WBC 16.4 K/uL (4.0-10.2)
[2023-05-15 08:16] LABS: CALCIUM 9.8 mg/dL (8.5-10.1); CREATININE 1.42 mg/dL (0.51-1.17); EST CRCL DRUG DOSING (CG) 53.92 mL/min; POTASSIUM,K 4.1 mmol/L (3.5-5.1)
[2023-05-15 08:19] LABS: ANION GAP 16.1 meq/L (7-15)
[2023-05-15 08:23] LABS: LACTIC ACID 1.2 mmol/L (0.4-2.0)
[2023-05-15] MEDS ORDERED: Diphtheria,Pertussis(Acell),Tetanus Vaccine 0.5 ML Syringe IM ONE (10:00)
== END 2023-05-15 09:20 | disposition home or self-care (01) | DRG 639 ==
LOC: LL.ED 19:21 → LL.MS 21:00
PROVIDERS: ADMIT Physician Assistant Medical; ATTEND Physician Assistant Medical
DX: E11.65 Type 2 diabetes mellitus with hyperglycemia (principal); E86.0 Dehydration; E87.1 Hypo-osmolality and hyponatremia; H91.90 Unspecified hearing loss, unspecified ear; J44.9 Chronic obstructive pulmonary disease, unspecified; K21.9 Gastro-esophageal reflux disease without esophagitis; N40.0 Benign prostatic hyperplasia without lower urinary tract symptoms; M19.90 Unspecified osteoarthritis, unspecified site; Z96.22 Myringotomy tube(s) status; G89.29 Other chronic pain; M10.9 Gout, unspecified; E66.9 Obesity, unspecified; Z98.890 Other specified postprocedural states; Z79.82 Long term (current) use of aspirin; Z79.84 Long term (current) use of oral hypoglycemic drugs; Z79.899 Other long term (current) drug therapy; Z86.718 Personal history of other venous thrombosis and embolism; Z68.31 Body mass index [BMI] 31.0-31.9, adult
CPT/HCPCS: 0241U; 36415; 80048; 80053; 81003; 82009; 82947; 83036; 83605; 85025; A9270-GY; J1815-GY; J7030; J7120

== ENCOUNTER 2023-05-21 15:26 | Observation (INO) | payer MEDICARE ==
[2023-05-21] MEDS ORDERED: Sodium Chloride 0.9% 10 ML Syringe FLUSH PRN (15:30)
[2023-05-21] MEDS ORDERED: Sodium Chloride 0.9% 1,000 ML IV SCH (16:30)
[2023-05-21] MEDS: Insulin Lispro 100 Units/ML 3 ML Vial SUBCUT SCH (16:30)
[2023-05-21] MEDS ORDERED: 50% Dextrose in Water 50 ML Syringe IVPUSH PRN (16:32)
[2023-05-21] MEDS ORDERED: Glucagon,Human Recombinant 1 MG Vial IM PRN (16:32)
[2023-05-21] MEDS: Sulfamethoxazole/Trimethoprim 800-160 MG Tab PO SCH (19:33)
[2023-05-21] MEDS: Aspirin 325 MG Tab PO SCH (19:33)
[2023-05-21] MEDS: metFORMIN 500 MG Tab PO SCH (19:33)
[2023-05-21] MEDS: Celecoxib 100 MG Cap PO SCH (19:33)
[2023-05-21] MEDS: DULoxetine 30 MG Cap PO SCH (19:33)
[2023-05-21] MEDS: Allopurinol 100 MG Tab PO SCH (19:33)
[2023-05-21] MEDS: Rosuvastatin 10 MG Tab PO SCH (20:17)
[2023-05-22 07:26] LABS: BASOPHILS ABSOLUTE AUTO 0.06 K/uL (0.00-0.20); BASOPHILS PERCENT AUTO 0.8 % (0.0-2.0); EOSINOPHILS ABSOLUTE AUTO 0.26 K/uL (0.00-0.50); EOSINOPHILS PERCENT AUTO 3.5 % (0.0-5.0); HEMATOCRIT 39.2 % (39.0-49.0); LYMPHOCYTES ABSOLUTE AUTO 1.63 K/uL (0.50-3.50); LYMPHOCYTES PERCENT AUTO 22.1 % (10.0-50.0); MEAN CORPUSCULAR HEMOGLOBIN 29.5 pg (28.2-33.3); MEAN CORPUSCULAR HGB CONC 33.2 g/dL (31.7-36.0); MEAN CORPUSCULAR VOLUME 89.1 fL (84.0-98.0); MONOCYTES ABSOLUTE AUTO 0.74 K/uL (0.00-1.00); NEUTROPHILS ABSOLUTE AUTO 4.69 K/uL (1.40-7.00); NEUTROPHILS PERCENT AUTO 63.6 % (45.0-80.0); PLATELET COUNT,PLT 214 K/uL (150-350); RED CELL DISTRIBUTION WIDTH 12.7 % (11.2-14.1); WHITE BLOOD CELL COUNT,WBC 7.4 K/uL (4.0-10.2)
[2023-05-22 07:45] LABS: ALBUMIN 3.2 g/dL (3.4-5.0); ANION GAP 10.2 meq/L (7-15); BILIRUBIN TOTAL 0.6 mg/dL (0.2-1.0); C-REACTIVE PROTEIN 1.4 mg/dL (0.05-0.30); CALCIUM 8.6 mg/dL (8.5-10.1); CARBON DIOXIDE,CO2 26.8 mmol/L (21.0-32.0); CREATININE 1.39 mg/dL (0.51-1.17); EST CRCL DRUG DOSING (CG) 51.92 mL/min; POTASSIUM,K 4.5 mmol/L (3.5-5.1); PROTEIN TOTAL,TP 6.6 g/dL (6.4-8.2)
[2023-05-22] MEDS ORDERED: Hydrochlorothiazide 25 MG Tab PO SCH (08:00)
[2023-05-22] MEDS ORDERED: Lisinopril 20 MG Tab PO SCH (08:00)
[2023-05-22] MEDS: Omeprazole 20 MG Cap.CR PO SCH (08:21)
[2023-05-22] MEDS: Multivitamin Tab PO SCH (08:22)
[2023-05-22] MEDS: Celecoxib 100 MG Cap PO SCH ×2 (08:22→19:21)
[2023-05-22] MEDS: metFORMIN 500 MG Tab PO SCH ×2 (08:22→19:21)
[2023-05-22] MEDS: Sulfamethoxazole/Trimethoprim 800-160 MG Tab PO SCH ×2 (08:22→19:21)
[2023-05-22 08:27] LABS: APPEARANCE,URINE CLEAR; BILIRUBIN,URINE NEGATIVE (NEGATIVE); COLOR,URINE YELLOW; GLUCOSE,URINE 500 mg/dL (NEGATIVE); KETONES,URINE TRACE mg/dL (NEGATIVE); LEUKOCYTE ESTERASE,URINE NEGATIVE (NEGATIVE); NITRITE,URINE NEGATIVE (NEGATIVE); OCCULT BLOOD,URINE NEGATIVE (NEGATIVE); PROTEIN,URINE NEGATIVE (NEGATIVE); UROBILINOGEN,URINE 0.2 E.U./dL (0.2-1.0)
[2023-05-22] MEDS: Insulin Lispro 100 Units/ML 3 ML Vial SUBCUT SCH ×3 (08:29→17:58)
[2023-05-22 08:52] LABS: RBC,URINE 0-5 /HPF; WBC,URINE 0-5 /HPF
[2023-05-22] MEDS: Dapagliflozin Propanediol [Farxiga] 10 MG Tablet PO SCH (09:07)
[2023-05-22] MEDS: Sodium Chloride 0.9% 10 ML Syringe FLUSH SCH ×2 (11:42→19:25)
[2023-05-22] MEDS: DULoxetine 30 MG Cap PO SCH (19:21)
[2023-05-22] MEDS: Allopurinol 100 MG Tab PO SCH (19:21)
[2023-05-22] MEDS: Aspirin 325 MG Tab PO SCH (19:21)
[2023-05-22] MEDS: Rosuvastatin 10 MG Tab PO SCH (19:21)
[2023-05-22] MEDS ORDERED: Insulin Lispro 100 Units/ML 3 ML Vial SUBCUT STA (20:30)
[2023-05-23] MEDS: Sodium Chloride 0.9% 10 ML Syringe FLUSH SCH (07:25)
[2023-05-23] MEDS: Celecoxib 100 MG Cap PO SCH (07:25)
[2023-05-23] MEDS: Multivitamin Tab PO SCH (07:25)
[2023-05-23] MEDS: Omeprazole 20 MG Cap.CR PO SCH (07:25)
[2023-05-23] MEDS: Sulfamethoxazole/Trimethoprim 800-160 MG Tab PO SCH (07:25)
[2023-05-23] MEDS: Dapagliflozin Propanediol [Farxiga] 10 MG Tablet PO SCH (07:25)
[2023-05-23] MEDS: metFORMIN 500 MG Tab PO SCH (07:25)
[2023-05-23 07:27] LABS: BASOPHILS ABSOLUTE AUTO 0.08 K/uL (0.00-0.20); EOSINOPHILS ABSOLUTE AUTO 0.28 K/uL (0.00-0.50); EOSINOPHILS PERCENT AUTO 3.4 % (0.0-5.0); HEMATOCRIT 40.9 % (39.0-49.0); HEMOGLOBIN 13.6 g/dL (13.1-16.8); LYMPHOCYTES ABSOLUTE AUTO 1.59 K/uL (0.50-3.50); LYMPHOCYTES PERCENT AUTO 19.3 % (10.0-50.0); MEAN CORPUSCULAR HEMOGLOBIN 29.4 pg (28.2-33.3); MEAN CORPUSCULAR HGB CONC 33.3 g/dL (31.7-36.0); MEAN CORPUSCULAR VOLUME 88.3 fL (84.0-98.0); MONOCYTES ABSOLUTE AUTO 0.81 K/uL (0.00-1.00); MONOCYTES PERCENT AUTO 9.8 % (2.0-14.0); NEUTROPHILS ABSOLUTE AUTO 5.48 K/uL (1.40-7.00); NEUTROPHILS PERCENT AUTO 66.5 % (45.0-80.0); PLATELET COUNT,PLT 241 K/uL (150-350); RED BLOOD CELL COUNT 4.63 M/uL (4.33-5.41); RED CELL DISTRIBUTION WIDTH 12.7 % (11.2-14.1); WHITE BLOOD CELL COUNT,WBC 8.2 K/uL (4.0-10.2)
[2023-05-23] MEDS: Insulin Lispro 100 Units/ML 3 ML Vial SUBCUT SCH ×2 (07:29→11:46)
[2023-05-23 07:43] LABS: ALBUMIN 3.5 g/dL (3.4-5.0); ANION GAP 10.6 meq/L (7-15); BILIRUBIN TOTAL 0.4 mg/dL (0.2-1.0); CALCIUM 9.1 mg/dL (8.5-10.1); CARBON DIOXIDE,CO2 25.4 mmol/L (21.0-32.0); CREATININE 1.24 mg/dL (0.51-1.17); EST CRCL DRUG DOSING (CG) 58.2 mL/min; POTASSIUM,K 4.4 mmol/L (3.5-5.1); PROTEIN TOTAL,TP 7.1 g/dL (6.4-8.2)
[2023-05-23 09:11] LABS: C-REACTIVE PROTEIN 0.86 mg/dL (0.05-0.30)
[2023-05-23 10:51] LABS: APPEARANCE,URINE SLIGHTLY CLOUDY; BILIRUBIN,URINE NEGATIVE (NEGATIVE); COLOR,URINE YELLOW; GLUCOSE,URINE 500 mg/dL (NEGATIVE); KETONES,URINE NEGATIVE (NEGATIVE); LEUKOCYTE ESTERASE,URINE NEGATIVE (NEGATIVE); NITRITE,URINE NEGATIVE (NEGATIVE); OCCULT BLOOD,URINE NEGATIVE (NEGATIVE); PROTEIN,URINE NEGATIVE (NEGATIVE); UROBILINOGEN,URINE 0.2 E.U./dL (0.2-1.0)
[2023-05-23 10:58] LABS: EPITHELIAL CELLS,URINE NOT SEEN /LPF; RBC,URINE 0-5 /HPF; WBC,URINE 0-5 /HPF
[2023-05-23 10:59] LABS: BACTERIA,URINE RARE /HPF (NONE TO FEW)
== END 2023-05-23 12:19 | disposition home or self-care (01) ==
LOC: LL.MS 15:26
PROVIDERS: ADMIT Physician Assistant; ATTEND Physician Assistant
DX: E11.10 Type 2 diabetes mellitus with ketoacidosis without coma (principal); E11.69 Type 2 diabetes mellitus with other specified complication; K80.20 Calculus of gallbladder without cholecystitis without obstruction; E78.5 Hyperlipidemia, unspecified; G89.29 Other chronic pain; M25.562 Pain in left knee; E66.9 Obesity, unspecified; M10.9 Gout, unspecified; Z87.891 Personal history of nicotine dependence; Z68.33 Body mass index [BMI] 33.0-33.9, adult
CPT/HCPCS: 36415; 80053; 81001; 82947; 83690; 85025; 86140; 93005; A9270-GY; J1815-GY; J3490; J7030

== ENCOUNTER 2024-11-06 09:32 | Day surgery (SDC) | payer MEDICARE ==
[~2024-11-06 09:32] MED LIST: Midazolam 1 MG/ML 2 ML SDV ONE; Propofol 200 MG/20 ML SDV ONE; Sodium Chloride 0.9% 10 ML Syringe FLUSH PRN
[2024-11-06] MEDS: Lactated Ringers 1,000 ML IV SCH (10:03)
== END 2024-11-06 11:53 | disposition home or self-care (01) ==
LOC: LL.SDS 09:32
PROVIDERS: ATTEND Surgery
DX: Z12.11 Encounter for screening for malignant neoplasm of colon (principal); R19.5 Other fecal abnormalities; D12.5 Benign neoplasm of sigmoid colon; K57.30 Diverticulosis of large intestine without perforation or abscess without bleeding
CPT/HCPCS: J2250; J2704; J7120